=== PATIENT | female | born 2000 | race Two or more races ===

== ENCOUNTER 2025-03-23 16:57 | Emergency (ER) | payer MEDICAID, SELFPAY ==
[2025-03-23 17:16] VITALS: BP 149/92; PULSE 55; RESP 18; TEMP 37.2; O2SAT 97; BMI 25.7
--- NOTE | 2025-03-23 17:27 | PD.EDRME ---
Rapid Medical Screening Exam RME Arrival date/time: 03/23/25 16 57 24-year-old female presents to the emergency department today for complaint of nausea vomiting abdominal pain Chief Complaint: Nausea/Vomiting/Diarrhea Time Seen by Provider: 03/23/25 18:33 Vital signs: Vital Signs Temperature 99.0 F 03/23/25 17:16 Pulse Rate 55 L 03/23/25 17:16 Respiratory Rate 18 03/23/25 17:16 Blood Pressure 149/92 H 03/23/25 17:16 Pulse Oximetry (%) 97 03/23/25 17:16 Oxygen Delivery Method Room Air 03/23/25 17:16
[2025-03-23] MEDS: KETOROLAC INJ 30 MG/ML VIAL IM (17:36)
[2025-03-23] MEDS: METOCLOPRAMIDE INJ 5 MG/ML VIAL 2 ML 10 MG IM (17:36)
[2025-03-23 17:55] LABS: Basophils # (Auto) 0.0 Thou/mm3 (0.0-0.2); Basophils % (Auto) 1 % (0-2.5); Eosinophils # (Auto) 0.0 Thou/mm3 (0.0-0.5); Eosinophils % (Auto) 0 % (0-10); Hematocrit 36.1 % (36.0-46.0); Hemoglobin 12.8 g/dL (12.0-16.0); Immature Granulocytes Auto 0.02 Thou/mm3 (0.00-0.00); Lymphocytes # (Auto) 1.4 Thou/mm3 (1.0-4.8); Lymphocytes % (Auto) 22 % (10-50); Mean Corpuscular HGB Conc 35.5 g/dl (31.0-37.0); Mean Corpuscular Hemoglobin 31.9 pg (25.0-35.0); Mean Corpuscular Volume 90 fL (80-100); Monocytes # (Auto) 0.4 Thou/mm3 (0.0-0.8); Monocytes % (Auto) 6 % (0-12); Neutrophils # (Auto) 4.6 Thou/mm3 (1.8-7.7); Neutrophils % (Auto) 71 % (37-80); Nucleated Red Blood Cell # 0.00 Thou/mm3 (0.00-0.00); Nucleated Red Blood Cell % 0 /100 WBC (0); Platelet Count 339 Thou/mm3 (140-440); RDW Standard Deviation 38.5 fL (36.4-46.3); Red Blood Count 4.01 Miln/mm3 (4.00-5.20); White Blood Count 6.4 Thou/mm3 (3.6-11.0)
[2025-03-23 18:23] LABS: Alanine Aminotransferase < 7 U/L (10-49); Albumin, Serum 5.0 gm/dL (3.5-5.0); Albumin/Globulin Ratio 1.9 (1.2-2.2); Alkaline Phosphatase 45 U/L (46-116); Anion Gap 13 (7-16); Aspartate Amino Transferase 16 U/L (0-34); BUN/Creatinine Ratio 9 Ratio (12-20); Bilirubin,Total 0.6 mg/dL (0.3-1.2); Blood Urea Nitrogen 6 mg/dL (9-23); Calcium 9.4 mg/dL (8.3-10.6); Calcium (Corrected) 9.4 mg/dL (8.5-10.1); Carbon Dioxide 25.1 mMol/L (20.0-31.0); Chloride 103 mMol/L (98-107); Creatinine (Component) 0.7 mg/dL (0.6-1.3); Estimated Creatinine Clearance 117.5 mL/min (>60); Globulin 2.6 gm/dL (2.3-3.5); Glucose 104 mg/dL (74-106); Lipase 37 U/L (12-53); Osmolality,Calculated 278 (275-295); Potassium 3.4 mMol/L (3.4-5.1); Sodium 141 mMol/L (136-145); Total Protein 7.6 gm/dL (5.7-8.2); eGFR > 60 See Note
--- NOTE | 2025-03-23 18:36 | EDNOTE_ITS ---
Nausea/Vomit./Diarrhea-RME/HPI General Chief complaint: Nausea/Vomiting/Diarrhea Stated complaint: Vomiting X 2 days, abdominal pain Time Seen by Provider: 03/23/25 18:33 Arrival date/time: 03/23/25 16:57 RME / HPI RME / HPI Narrative: 03/23/25 16 57 24-year-old female presents to the emergency department today for complaint of nausea vomiting abdominal pain See [facility] for Dr. Benitez's HPI Documentation. Related Data Home Medications ?Medication ?Instructions ?Recorded ?Confirmed ibuprofen 600 mg tablet 600 mg PO TID PRN Pain 10/2510/25/17 Previous Rx's ?Medication ?Instructions ?Recorded acetaminophen 300 mg-codeine 30 mg 2 tab PO Q8H PRN pa in #20 tabs 03/23/25 tablet ondansetron 4 mg disintegrating 4 mg PO TID PRN nausea and 03/23/25 tablet vomiting 30 days #10 tabs acetaminophen 300 mg-codeine 30 mg 2 tab PO Q8H PRN pa in #20 tabs 03/24/25 tablet Allergies Allergy/AdvReac Type Severity Reaction Status Date / Time NKA* Allergy Uncoded 03/23/25 17:02 Review of Systems Review of Systems Systems Reviewed: All systems reviewed, normal except as documented ED Exam Narrative Physical exam: See [facility] for Dr. Benitez's Physical Exam Documentation. Course Quality Measures none Orders Category Date Time Status EKG (ED ONLY) *Do not use* NOW Care 03/23/25 18:40 Completed EKG (ED Only) Stat Exams 03/23/25 18:40 Draft US gall bladder Stat Exams 03/23/25 18:40 Completed XR chest 1V portable Stat Exams 03/23/25 18:40 Completed CBC Stat Lab 03/23/25 17:42 Completed Comprehensive Metabolic Panel Stat Lab 03/23/25 17:42 Completed HCG Qualitative,Urine Stat Lab 03/23/25 18:22 Completed Lipase Stat Lab 03/23/25 17:42 Completed Troponin I Stat Lab 03/23/25 17:42 Completed UA, C/S IF [Urinalysis, C/S if Indicated] Stat Lab 03/23/25 18:22 Completed Ketorolac Inj [Toradol Inj] Med 03/23/25 17:26 Discontinued 30 mg IM X1 ONE Metoclopramide Inj [Reglan Inj] Med 03/23/25 17:26 Discontinued 10 mg IM X1 ONE Vital Signs Vital signs: Vital Signs Temperature 99.0 F 03/23/25 17:16 Pulse Rate 55 L 03/23/25 17:16 Respiratory Rate 18 03/23/25 17:16 Blood Pressure 149/92 H 03/23/25 17:16 Pulse Oximetry (%) 97 03/23/25 17:16 Oxygen Delivery Method Room Air 03/23/25 17:16 Nausea/Vomiting/Diarrhea MDM Narrative MDM Narrative:: This section includes all my notes and documentations, including HPI, PE, and ED course. Bert Benitez MD HPI: 24 y/o female with upper abdominal pain and vomiting x 5 days. No hematemesis or coffee-ground emesis. No rectal bleeding or tarry stools. No other complaints. ROS: All negative except as documented in HPI. Physical Exam: General: Alert and oriented. Appears uncomfortable. Eyes: Conjunctivae and lids clear. ENT: No nasal congestion. Neck: Supple. Heart: RRR. Lungs: No respiratory distress. Good air movement. No rhonchi, wheezing, rales. Abdomen: Soft with RUQ tenderness. Normal bowel sounds. No distension. No rebound or guarding. Back: No CVA tenderness. Skin: Warm and dry. Neuro: Alert and oriented X 3. I reviewed all diagnostic test results: My interpretation of the EKG is: Sinus rhythm (52 bpm) with nonspecific ST-T changes. My interpretation of the chest x-ray is: NAD. My review of the Gall Bladder US report is: Cholelithiasis, negative for cholecystitis. Blood tests and urine tests unremarkable At this point, diagnoses include: Gallstones Treatment here included: Toradol 30 mg IM Reglan 10 mg IM She felt much better. Recommended outpatient care. Based on my best medical judgment, made decision no further evaluation or treatment indicated at this time. Patient understands and agrees to the discharge instructions customized and printed, see below. Discharge Instructions from Dr. Benitez: 1. After evaluation, your symptoms are due to gallstone(s).? You need gallbladder to help digest fatty foods. 2. So to prevent future attacks, avoid all fatty and oily and greasy and buttery and dairy foods.? This usually means take out and fast food restaurants. 3. Zofran for nausea/vomiting.? Tylenol with codeine for severe pain.? Clear liquid diet for 24 hours then advance diet slowly as tolerated. 4. See a private doctor on 03/26/25 for recheck and further care. Ask to review all test results and official radiology reports, to make sure you receive all necessary follow-ups and monitoring. Ask for help seeing a general surgeon to discuss elective surgery, to prevent your severe painful attacks. 5. Seek immediate medical care with intolerable pain, fever, or with any concerns. Bert Benitez MD Patient data External records reviewed:: [facility] previous records (No recent ED records available for review) Clinical information provided by:: patient Social determinants that could affect healthcare access:: none Patient has the following chronic illnesses:: None reported How is presenting disease/condition affected by chronic disease/condition?: no chronic disease Evaluation data The following diagnostics were reviewed and interpreted by me:: lab results, radiology exam(s) and EKG tracing(s) (My interpretation of the EKG is: Sinus rhythm (52 bpm) with nonspecific ST-T changes. Bert Benitez MD) Lab and/or radiology exams considered but not ordered:: None Interpretation Summary: I reviewed all diagnostic test results: My interpretation of the EKG is: Sinus rhythm (52 bpm) with nonspecific ST-T changes. My interpretation of the chest x-ray is: NAD. My review of the Gall Bladder US report is: Cholelithiasis, negative for cholecystitis. Blood tests and urine tests unremarkable Medications / Prescriptions Medications / Prescriptions considered but not ordered:: None Medication administrations:: Medication Administration History Discontinued Medications Ketorolac Tromethamine (Ketorolac Inj 30 Mg/Ml Vial) 30 mg IM X1 ONE Stop: 03/23/25 17:27 Last Admin: 03/23/25 17:36 Dose: 30 mg Documented By: SHARI Metoclopramide HCl (Metoclopramide Inj 5 Mg/Ml Vial 2 Ml) 10 mg IM X1 ONE; Protocol Stop: 03/23/25 17:27 Last Admin: 03/23/25 17:36 Dose: 10 mg Documented By: SHARI Toradol 30 mg IM Reglan 10 mg IM Consultations Consultation(s) initiated? (list below): No Diagnosis Nausea Differential Diagnosis: food poisoning, gastroenteritis, drug-induced nausea and vomiting, dehydration and other (Cholecystitis, Cholelithiasis) Most likely diagnosis given after review of the tests above:: Gallstones Admission Indicated Admission indicated?: not indicated Explain why admission is indicated or not indicated:: With significant improvement and no condition needing emergent intervention, there was no indication for admission. Admission Request Was there a request for admission?: No Disposition Plan Disposition Plan: Discharge Discharge Attestation Discharge Attestation: The patient and all family members were given an opportunity to ask questions and understood the discharge instructions. Discharge instructions specifically effects, indications for sooner follow up or return to the emergency department, and the expected course of current diagnosis. Patient condition: Stable Discharge Plan Plan Patient Disposition: HOME (Self Care) Prescriptions/Referrals Prescriptions/Med Rec: New acetaminophen-codeine 300-30 mg tablet 2 tab PO Q8H MDD 6 PRN (Reason: pain) Qty: 20 0RF ondansetron 4 mg tablet,disintegrating 4 mg PO TID PRN (Reason: nausea and vomiting) 30 Days Qty: 10 0RF acetaminophen-codeine 300-30 mg tablet 2 tab PO Q8H MDD 6 PRN (Reason: pain) Qty: 20 0RF No Action ibuprofen 600 mg Tablet 600 mg PO TID PRN (Reason: Pain) Referrals: No Primary/Family,Physician [Primary Care Provider] - In 1 week Problem List Clinical Impression: Gallstones Patient/Caregiver Discharge Instructions Discharge Activity: activity as tolerated Education Materials: ED Gallstones with Biliary Colic Additional Instructions: Discharge Instructions from Dr. Benitez: 1. After evaluation, your symptoms are due to gallstone(s).? You need gallbladder to help digest fatty foods. 2. So to prevent future attacks, avoid all fatty and oily and greasy and buttery and dairy foods.? This usually means take out and fast food restaurants. 3. Zofran for nausea/vomiting.? Tylenol with codeine for severe pain.? Clear liquid diet for 24 hours then advance diet slowly as tolerated. 4. See a private doctor on 03/26/25 for recheck and further care. Ask to review all test results and official radiology reports, to make sure you receive all necessary follow-ups and monitoring. Ask for help seeing a general surgeon to discuss elective surgery, to prevent your severe painful attacks. 5. Seek immediate medical care with intolerable pain, fever, or with any concerns. Print Language: [place]serratian Stand Alone Forms: [employer] Award Info., Patient Portal Info Letter
[2025-03-23 18:39] LABS: Collection Type, Urine Clean Catch
--- NOTE | 2025-03-23 18:40 | EKG_ITS ---
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
--- NOTE | 2025-03-23 18:40 | XR_ITS ---
Examination: Abdomen sonogram, Limited Date and time of exam: March 23, 20252007 hours INDICATIONS: Epigastric pain and vomiting beginning 2 days ago. Technique: Real-time caceres scale transabdominal sonographic images of the upper abdomen obtained. Findings: Multiple gallstones Normal gallbladder wall Common bile duct 0.2 cm Pancreatic tail 1.7 cm Liver 15.2 cm smooth contour no focal liver lesions Normal hepatopetal portal venous flow Patent IVC IMPRESSION: Cholelithiasis, negative for cholecystitis
--- NOTE | 2025-03-23 18:40 | XR_ITS ---
EXAMINATION: PA chest single view TECHNIQUE: Upright PA chest single view Date and time: March 23, 2025, 1859 hours INDICATIONS: Chest pain shortness of breath dizziness nausea vomiting weakness beginning 3 days ago FINDINGS: Normal heart size The lungs are clear. The osseous structures are intact IMPRESSION: No active disease
[2025-03-23 18:57] LABS: Troponin I < 0.002 ng/mL (0.0-0.045)
[2025-03-23 19:00] LABS: Bilirubin,Urine Negative (Negative); Blood,Urine 1+ (Negative); Clarity,Urine Clear (Clear/Hazy); Color,Urine Lt-Yellow (Lt Yel-Yel); Culture Indicated,Urine Not Indicated; Glucose, Urine Negative (Negative); Ketones,Urine 3+ (Negative); Leukocyte Esterase,Urine Negative (Negative); Nitrite,Urine Negative (Negative); PH,Urine 6.5 (5.0-7.0); Protein,Urine Trace (Neg - Trace); RBC,Urine 25 /hpf (0-3); Specific Gravity,Urine 1.025 (1.001-1.035); Squamous Epithelial Cell,Urine 1 /hpf (0-5); Urobilinogen,Urine Negative mg/dL (0.0-1.0); WBC,Urine < 1 /hpf (0-5)
[2025-03-23 19:06] LABS: HCG Qualitative,Urine Negative
== END 2025-03-23 21:46 | disposition home or self-care (01) ==
PROVIDERS: Nurse Practitioner Primary Care; Emergency Provider Emergency Medicine
DX: K80.20 Calculus of gallbladder without cholecystitis without obstruction (principal)
CPT/HCPCS: 36415; 71045; 76705; 80053; 81001; 81025; 83690; 84484; 85025; 93005; 99283; J1885; J2765

== ENCOUNTER 2025-05-23 22:50 | Emergency (ER) | payer MEDICAID, SELFPAY ==
[2025-05-23 22:55] VITALS: BMI 25.7
[2025-05-23 23:12] VITALS: BP 136/93; PULSE 54; RESP 18; TEMP 36.8; O2SAT 99
--- NOTE | 2025-05-23 23:24 | PD.EDRME ---
Rapid Medical Screening Exam RME Arrival date/time: 05/23/25 22:50 24F with history of cholecystectomy and marijuana use presents to ED with several hours of ab pain and N/V. Patient denies dysuria, diarrhea, and is not on cycle. Chief Complaint: Abdominal Pain Vital signs: Vital Signs Temperature 98.2 F 05/23/25 23:12 Pulse Rate 54 L 05/23/25 23:12 Respiratory Rate 18 05/23/25 23:12 Blood Pressure 136/93 H 05/23/25 23:12 Pulse Oximetry (%) 99 05/23/25 23:12 Oxygen Delivery Method Room Air 05/23/25 23:12 Exam: Possible gen ab tenderness. Clinical Impression: drug use vs vs gastritis vs gastroenteritis vs biliary disease vs pancreatitis
[2025-05-23 23:45] LABS: Basophils # (Auto) 0.1 Thou/mm3 (0.0-0.2); Basophils % (Auto) 1 % (0-2.5); Eosinophils # (Auto) 0.0 Thou/mm3 (0.0-0.5); Eosinophils % (Auto) 0 % (0-10); Hematocrit 35.3 % (36.0-46.0); Hemoglobin 12.6 g/dL (12.0-16.0); Immature Granulocytes Auto 0.04 Thou/mm3 (0.00-0.00); Lymphocytes # (Auto) 1.5 Thou/mm3 (1.0-4.8); Lymphocytes % (Auto) 11 % (10-50); Mean Corpuscular HGB Conc 35.7 g/dl (31.0-37.0); Mean Corpuscular Hemoglobin 31.2 pg (25.0-35.0); Mean Corpuscular Volume 87 fL (80-100); Monocytes # (Auto) 0.4 Thou/mm3 (0.0-0.8); Monocytes % (Auto) 3 % (0-12); Neutrophils # (Auto) 11.5 Thou/mm3 (1.8-7.7); Neutrophils % (Auto) 85 % (37-80); Nucleated Red Blood Cell # 0.00 Thou/mm3 (0.00-0.00); Nucleated Red Blood Cell % 0 /100 WBC (0); Platelet Count 297 Thou/mm3 (140-440); RDW Standard Deviation 37.3 fL (36.4-46.3); Red Blood Count 4.04 Miln/mm3 (4.00-5.20); White Blood Count 13.5 Thou/mm3 (3.6-11.0)
[2025-05-23] MEDS: METOCLOPRAMIDE INJ 5 MG/ML VIAL 2 ML 10 MG IM (23:59)
[2025-05-24 00:03] LABS: Alanine Aminotransferase < 7 U/L (10-49); Albumin, Serum 4.9 gm/dL (3.5-5.0); Albumin/Globulin Ratio 1.4 (1.2-2.2); Alkaline Phosphatase 51 U/L (46-116); Anion Gap 14 (7-16); Aspartate Amino Transferase 16 U/L (0-34); BUN/Creatinine Ratio 12 Ratio (12-20); Bilirubin,Total 0.5 mg/dL (0.3-1.2); Blood Urea Nitrogen 7 mg/dL (9-23); Calcium 9.8 mg/dL (8.3-10.6); Calcium (Corrected) 9.8 mg/dL (8.5-10.1); Carbon Dioxide 25.4 mMol/L (20.0-31.0); Chloride 102 mMol/L (98-107); Creatinine (Component) 0.6 mg/dL (0.6-1.3); Estimated Creatinine Clearance 137.0 mL/min (>60); Globulin 3.4 gm/dL (2.3-3.5); Glucose 154 mg/dL (74-106); Lipase 41 U/L (12-53); Osmolality,Calculated 282 (275-295); Potassium 3.4 mMol/L (3.4-5.1); Sodium 141 mMol/L (136-145); Total Protein 8.3 gm/dL (5.7-8.2); eGFR > 60 See Note
[2025-05-24 00:40] LABS: Collection Type, Urine Clean Catch
[2025-05-24 00:50] LABS: Amorphous Crystals,Urine Present (Absent); Bacteria,Urine 2+; Bilirubin,Urine Negative (Negative); Blood,Urine Negative (Negative); Clarity,Urine Turbid (Clear/Hazy); Color,Urine Lt-Yellow (Lt Yel-Yel); Culture Indicated,Urine Yes; Glucose, Urine 1+ (Negative); Ketones,Urine 4+ (Negative); Leukocyte Esterase,Urine Negative (Negative); Nitrite,Urine Negative (Negative); PH,Urine 6.5 (5.0-7.0); Protein,Urine Trace (Neg - Trace); RBC,Urine 7 /hpf (0-3); Specific Gravity,Urine 1.024 (1.001-1.035); Squamous Epithelial Cell,Urine 1 /hpf (0-5); Urobilinogen,Urine Negative mg/dL (0.0-1.0); WBC,Urine 5 /hpf (0-5)
[2025-05-24 00:51] LABS: HCG Qualitative,Urine Negative
[2025-05-24 00:52] LABS: Amphetamine/Methamp Scrn,U Negative (Negative); Barbiturate Screen,Urine Negative (Negative); Benzodiazepines Screen,Urine Negative (Negative); Benzoylecgonine Screen, Ur Negative (Negative); Fentanyl Screen,Urine Negative (Negative); Opiate Screen,Urine Negative (Negative); THC Screen,Urine Positive (Negative)
--- NOTE | 2025-05-24 02:21 | EDNOTE_ITS ---
ED Abdominal Pain RME/HPI General Chief Complaint: Abdominal Pain Stated complaint: ABD PAIN AND VOMITING Time seen by provider: 05/23/25 23:30 Arrival date/time: 05/23/25 22:50 Limitations: no limitations RME / HPI RME / HPI narrative: 05/23/25 22:50 24F with history of cholecystectomy and marijuana use presents to ED with several hours of ab pain and N/V. Patient denies dysuria, diarrhea, and is not on cycle. Dr. Pérez evaluation Patient is a 24-year-old female is in Emergency Department with acute abdominal pain. Patient states that she was at her usual state of health, at approximately 7 PM she was having dinner with her family when she developed periumbilical pain. She has had multiple episodes of vomiting since then. Denies any fevers, chills, chest pain, palpitations, dysuria hematuria, melena bloody stools. Patient has had a gastric sleeve as well as a cholecystectomy. Patient had a cholecystectomy in March. No recent travel no sick contacts. Patient does not use any substances although marijuana. Has not used marijuana in multiple days. Patient describes vomiting as not projectile. Exam: Possible gen ab tenderness. Impression: drug use vs vs gastritis vs gastroenteritis vs biliary disease vs pancreatitis Related Data Home Medications ?Medication ?Instructions ?Recorded ?Confirmed ibuprofen 600 mg tablet 600 mg PO TID PRN Pain 10/2510/25/17 Previous Rx's ?Medication ?Instructions ?Recorded acetaminophen 300 mg-codeine 30 mg 2 tab PO Q8H PRN pa in #20 tabs 03/23/25 tablet acetaminophen 300 mg-codeine 30 mg 2 tab PO Q8H PRN pa in #20 tabs 03/24/25 tablet Allergies Allergy/AdvReac Type Severity Reaction Status Date / Time No Known Allergies Allergy Verified 05/23/25 22:55 ED Exam General Limitations: Present no limitations General appearance: Present alert and in no apparent distress Head Head exam: Present atraumatic and normocephalic Eye Eye exam: Present normal appearance and PERRL ENT ENT exam: Present normal exam and normal oropharynx Neck Neck exam: Present normal inspection and full ROM Chest Chest inspection: Present normal inspection and symmetric chest wall rise Respiratory Respiratory exam: Present normal lung sounds bilaterally; Absent respiratory distress Cardiovascular Cardiovascular exam: Present regular rate and normal rhythm Abdominal Exam Abdominal exam: Present soft and tenderness (Diffuse tenderness palpation however worse in the rosemary- umbilical area); Absent distention Neurological Exam Neurological exam: Present alert, oriented X3 and other Course Quality Measures none Orders Category Date Time Status CT Screening NOW Care 05/24/25 02:30 Completed EKG (ED ONLY) *Do not use* NOW Care 05/24/25 02:[address] abdomen pelvis w con Stat Exams 05/24/25 02:30 Completed EKG (ED Only) Stat Exams 05/24/25 02:30 Draft CBC Stat Lab 05/23/25 23:39 Completed CMP [Comprehensive Metabolic Panel] Stat Lab 05/23/25 23:39 Completed Drug Screen,Urine Stat Lab 05/24/25 00:34 Completed HCG Qualitative,Urine Stat Lab 05/24/25 00:34 Completed Lipase Stat Lab 05/23/25 23:39 Completed Urinalysis, C/S if Indicated Stat Lab 05/24/25 00:34 Completed Urine Culture Stat Lab 05/24/25 00:34 Completed DiphenhydrAMINE INJ [Benadryl Inj] Med 05/24/25 05:26 Discontinued 25 mg IVP X1 ONE Haloperidol Lactate [Haldol Inj] Med 05/24/25 05:26 Discontinued 2 mg IM X1 ONE Metoclopramide Inj [Reglan Inj] Med 05/23/25 23:51 Discontinued 10 mg IM X1 ONE Metoclopramide [Reglan] Med 05/23/25 23:23 Discontinued 10 mg PO X1 ONE Ondansetron Inj [Zofran Inj] Med 05/24/25 02:30 Discontinued 4 mg IVP X1 ONE Ringers Lactated 1000 ml [Lactated Ringers] 1,000 ml Med 05/24/25 02:22 Discontinued IV 999 mls/hr cefTRIAXone/D5w 1gm IV premix [Rocephin/D5w 1gm IV Med 05/24/25 02:22 Discontinued premix] 1 gm in 50 ml IV STAT Vital Signs Vital signs: Vital Signs Temperature 98.2 F 05/23/25 23:12 Pulse Rate 54 L 05/23/25 23:12 Respiratory Rate 18 05/23/25 23:12 Blood Pressure 136/93 H 05/23/25 23:12 Pulse Oximetry (%) 99 05/23/25 23:12 Oxygen Delivery Method Room Air 05/23/25 23:12 Abdominal Pain MDM MDM Narrative MDM Narrative:: 24F with history of cholecystectomy and marijuana use presents to ED with severa l hours of ab pain and N/V. Vital signs and exam as listed. Prior provider evaluated patient ordered labs after medication for symptom relief. Concern for urinary tract infection, pancreatitis, cyclic vomiting syndrome. Labs with evidence of leukocytosis 13.5, left shift of 85%. Hemoglobin within normal limits. No acute significant metabolic disturbance, no transaminitis, lipase normal. Urinalysis with ketones turbid nitrate negative leuk esterase -7 RBCs 5 WBCs amorphous crystals 2+ bacteria concern for urinary tract infection. Patient is not . Drug screen positive for marijuana. On my assessment patient continues to be nauseous, has periumbilical pain. Given patient's acute onset abdominal pain that started at 7:00p recurrent episodes of emesis despite use of antiemetics, also concern the patient may have appendicitis or a bowel obstruction. Ordered CT abdomen pelvis with contrast. CT abdomen pelvis with contrast without any evidence of any acute intra-abdominal pathology. Patient does have scarring in the gallbladder fossa however her pain is not limited to the right upper quadrant. Given patient's reassuring workup, will discharge to home with close return precautions follow- up with primary care doctor. Symptoms improved, tolerating oral intake, advised on sobriety. Patient data External records reviewed:: None Clinical information provided by:: patient Social determinants that could affect healthcare access:: substance use Patient has the following chronic illnesses:: Marijuana use How is presenting disease/condition affected by chronic disease/condition?: exacerbated by Evaluation data The following diagnostics were reviewed and interpreted by me:: lab results, radiology exam(s) and EKG tracing(s) Lab and/or radiology exams considered but not ordered:: None Interpretation Summary: See Medications / Prescriptions Medications or Prescriptions considered but not ordered:: DM Medication administrations:: Medication Administration History Discontinued Medications Diphenhydramine HCl (Diphenhydramine Inj 50 Mg/Ml Vial) 25 mg IVP X1 ONE Stop: 05/24/25 05:27 Last Admin: 05/24/25 05:39 Dose: 25 mg Documented By: ALEX Haloperidol Lactate (Haloperidol Lact Inj 5 Mg/Ml Vial) 2 mg IM X1 ONE Stop: 05/24/25 05:27 Last Admin: 05/24/25 05:38 Dose: 2 mg Documented By: ALEX Lactated Ringer's (Lactated Ringers) 1,000 mls @ 999 mls/hr IV .Q1H1M ONE Stop: 05/24/25 03:22 Last Infusion: 05/24/25 04:19 Dose: Infused Documented By: Admin: 05/24/25 02:36 Dose: 999 mls/hr Documented By: ALEX Ceftriaxone Sodium/Dextrose (Rocephin/D5w 1gm Iv Premix) 1 gm in 50 mls @ 100 mls/hr IV STAT STA Stop: 05/24/25 02:51 Last Infusion: 05/24/25 04:19 Dose: Infused Documented By: Admin: 05/24/25 03:16 Dose: 100 mls/hr Documented By: ALEX Metoclopramide HCl (Metoclopramide 5 Mg Tablet) 10 mg PO X1 ONE Stop: 05/23/25 23:24 Last Admin: 05/24/25 00:01 Dose: Not Given Documented By: PADMINI Non-Admin Reason: Discontinued Metoclopramide HCl (Metoclopramide Inj 5 Mg/Ml Vial 2 Ml) 10 mg IM X1 ONE; Protocol Stop: 05/23/25 23:52 Last Admin: 05/23/25 23:59 Dose: 10 mg Documented By: PADMINI Ondansetron HCl (Ondansetron Inj 2 Mg/Ml Inj 2 Ml) 4 mg IVP X1 ONE; Protocol Stop: 05/24/25 02:31 Last Admin: 05/24/25 03:16 Dose: 4 mg Documented By: ALEX See above Consultations Consultation(s) initiated? (list below): No Diagnosis Differential diagnosis abdominal pain: other (See MDM) Most likely diagnosis given after review of the tests above:: See [facility] Admission Indicated Admission indicated?: not indicated Admission Request Was there a request for admission?: No Disposition Plan Disposition Plan: Discharge Discharge Attestation Discharge Attestation: The patient and all family members were given an opportunity to ask questions and understood the discharge instructions. Discharge instructions specifically effects, indications for sooner follow up or return to the emergency department, and the expected course of current diagnosis. Patient condition: Stable Discharge Plan Plan Patient Disposition: HOME (Self Care) Prescriptions/Referrals Prescriptions/Med Rec: No Action ibuprofen 600 mg Tablet 600 mg PO TID PRN (Reason: Pain) acetaminophen-codeine 300-30 mg tablet 2 tab PO Q8H MDD 6 PRN (Reason: pain) Qty: 20 0RF acetaminophen-codeine 300-30 mg tablet 2 tab PO Q8H MDD 6 PRN (Reason: pain) Qty: 20 0RF Referrals: No Primary/Family,Physician [Primary Care Provider] - In 1 week Problem List Clinical Impression: Abdominal pain, Marijuana use, Nausea Patient/Caregiver Discharge Instructions Education Materials: Cannabinoid Hyperemesis Syndrome, Abdominal Pain Additional Instructions: Your labs today showed mild elevation in your white blood cell count, no acute metabolic abnormalities, no evidence of pancreatitis, no renal or liver dysfunction. Your CT scan did not identify any acute intra-abdominal pathology. I recommend that you hydrate well, eat a very bland diet for the next 2 weeks. Please see away from fatty food, carbonated drinks, dairy, spicy food. I also recommend that you do not use any THC or marijuana products for the next month in the event that this is related to a cannabinoid hyperemesis pathology. Please follow-up with your primary care doctor within the next 1 to 2 days, return immediately if you have worsening symptoms or any other symptom of mago rn. Print Language: Azeri Stand Alone Forms: [employer] Info., Patient Portal Info Letter
--- NOTE | 2025-05-24 02:30 | EKG_ITS ---
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
--- NOTE | 2025-05-24 02:30 | XR_ITS ---
Examination: CT abdomen with intravenous contrast CT pelvis with intravenous contrast 2-D coronal reconstructions 2-D sagittal reconstructions Date and time of exam: May 24, 2025, 0400 hours INDICATIONS: Right lower abdominal pain and vomiting today. CTDI: vol (mGy) 6.43 DLP: (mGycm) 351 Technique: Multiple axial sections of the abdomen and pelvis have been obtained. 64 slice high-resolution scanner used. 3 mm axial sections have been obtained, post intravenous injection 60 cc of [id number] 2-D sagittal, coronal reconstructions obtained. Low dose protocols were performed. One or more of the following dose reduction techniques were used; automated exposure control, adjustment of the mA and/or KV according to patient size, use of iterative reconstruction technique. Findings: No focal liver or splenic lesions Absent gallbladder No common hepatic or common bile duct stones No pancreatic or adrenal mass No renal or ureteral calculi, no hydronephrosis Normal appendix No bowel obstruction No pelvic mass Bladder intact IMPRESSION: Normal appendix No bowel obstruction diverticulitis or free air
[2025-05-24] MEDS: RINGERS LACTATED 1000 ML 1,000 ML 999 ML IV (02:36)
[2025-05-24 02:58] VITALS: BP 151/99; PULSE 60; RESP 18; TEMP 36.9; O2SAT 98
[2025-05-24] MEDS: ONDANSETRON INJ 2 MG/ML INJ 2 ML 4 MG IVP (03:16)
[2025-05-24] MEDS: cefTRIAXone/D5w 1gm IV premix 1 GM/50 ML BAG IV (03:16)
[2025-05-24 04:16] VITALS: BP 131/87; RESP 17; TEMP 37; O2SAT 96
--- NOTE | 2025-05-24 04:58 | PRELIM_ITS ---
CT scan of the abdomen and pelvis with intravenous contrast (axial sections with sagittal and coronal reformats) May 24, 2025 0400 hours Clinical History: Obstruction, appendicitis. Comparison: None available at the time of this report. Findings: The lung bases are clear. The liver, pancreas, spleen, kidneys and adrenals are unremarkable. Status postcholecystectomy. No biliary ductal dilatation. Mild fat stranding in the gallbladder fossa. No evidence of bowel obstruction. The appendix is within normal limits. There is no mesenteric or retroperitoneal adenopathy. The urinary bladder is unremarkable. There is no free fluid or free air. The osseous structures are unremarkable. S/p gastric sleeve surgery. Impression: 1. No evidence of acute intra-abdominal or pelvic pathology. 2. No evidence of bowel obstruction. 3. No evidence of appendicitis. 4. Mild fat stranding in the gallbladder fossa, possibly due to chronic scarring. Please, correlate clinically. Report Electronically Signed By: Rahul Hinton 05/24/2025 4:58:04 AM [EST]
[2025-05-24] MEDS: HALOPERIDOL LACT INJ 5 MG/ML VIAL 2 MG IM (05:38)
== END 2025-05-24 06:30 | disposition home or self-care (01) ==
PROVIDERS: Physician Assistant; Emergency Provider Emergency Medicine
DX: F12.90 Cannabis use, unspecified, uncomplicated (principal); R10.31 Right lower quadrant pain; R11.2 Nausea with vomiting, unspecified
CPT/HCPCS: 36415; 74177; 80053; 80307; 81001; 81025; 83690; 85025; 87086; 93005; 96361; 96372; 96374; 96375; 99284; A4649; J0696; J1200; J1630; J2405; J2765; J7120; Q9967